=== PATIENT | male | born 1960 | race American Indian/Alaskan Native ===

== ENCOUNTER 2018-05-24 17:17 | Inpatient (IN) | payer OTHER, MEDICAID ==
[2018-05-24] MEDS ORDERED: ANTIVERT PO ONE (19:07)
[2018-05-24] MEDS ORDERED: NORMODYNE IV ONE ×2 (19:07→20:50)
--- NOTE | 2018-05-24 19:12 | Emergency Department Report ---
HPI - General Chief Complaint: Nausea/Vomiting/Diarrhea Time Seen by Provider: 05/24/18 18:52 - HPI HPI: 58-year-old male presents to the emergency department from home via EMS after he passed out, woke up with severe nausea and vomiting, dizziness as if the room is spinning and a headache. He says that he called for his family to come to the house and had to crawl to the door to let them in. 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 The patient receives antibiotics through a PICC line and regularly visits wound care. He received 4 mg of Zofran in route. He has some light sensitivity. No recent travel or sick contacts at home. He is in between primary care physicians. ED Past Medical Hx - Past Medical History Previous Medical History?: Yes Hx Hypertension: Yes Hx Diabetes: Yes Hx HIV: No - Surgical History Past Surgical History?: Yes Additional Surgical History: left foot toes amputated - Social History Smoking Status: Current Some Day Smoker Substance Use Type: None - Medications Home Medications: Home Medications Medication Instructions Recorded Confirmed Last Taken Type Hydrochlorothiazide 0 mg PO QDAY 12/01/15 12/01/15 Unknown History Lisinopril [Zestril TAB] 25 mg PO QDAY 12/01/15 12/01/15 Unknown History ED Review of Systems ROS: Stated complaint: NAUSE/VOMITING/DIZZY Other details as noted in HPI Comment: All other systems reviewed and negative Constitutional: denies: chills, fever Eyes: other (photophobia). denies: eye pain, eye discharge ENT: denies: ear pain, throat pain Respiratory: denies: cough, shortness of breath, wheezing Cardiovascular: syncope. denies: chest pain Gastrointestinal: nausea, vomiting Genitourinary: denies: urgency, dysuria Musculoskeletal: denies: back pain, joint swelling, arthralgia Skin: denies: rash, lesions Neurological: headache, vertigo, other (dizziness) Physical Exam - Physical Exam Vital Signs: Vital Signs 05/24/18 18:55 Temperature 97.7 F Pulse Rate 86 Respiratory 15 Rate Blood Pressure 196/101 O2 Sat by Pulse 99 Oximetry Physical Exam: GENERAL: The patient is well-developed well-nourished. HENT: Normocephalic. Atraumatic. Patient has moist mucous membranes. EYES: Extraocular motions are intact. Pupils equal reactive to light bilaterally. Patient has some sustained horizontal nystagmus. NECK: Supple. Trachea is midline. CHEST/LUNGS: Clear to auscultation. There is no respiratory distress noted. HEART/CARDIOVASCULAR: Regular. There is no tachycardia. There is no murmur. ABDOMEN: Abdomen is soft, nontender. Patient has normal bowel sounds. There is no abdominal distention. SKIN: Skin is warm and dry. NEURO: The patient is awake, alert, and oriented. The patient is cooperative. The patient has no focal neurologic deficits. The patient has normal speech. Cranial nerves II through XII grossly intact. No pronator drift. No facial asymmetry. MUSCULOSKELETAL: There is no tenderness or deformity. There is no limitation range of motion. There is no evidence of acute injury. ED Course Vital Signs 05/24/18 18:55 Temperature 97.7 F Pulse Rate 86 Respiratory 15 Rate Blood Pressure 196/101 O2 Sat by Pulse 99 Oximetry ED Medical Decision Making - Lab Data Result diagrams: 05/24/18 19:30 05/24/18 19:30 - EKG Data -: EKG Interpreted by [facility] EKG shows normal: sinus rhythm, axis, intervals, QRS complexes, ST-T waves Rate: normal - EKG Data When compared to previous EKG there are: previous EKG unavailable Interpretation: normal EKG - Radiology Data Radiology results: report reviewed PROCEDURE: CT head without contrast. TECHNIQUE: Computerized tomography of the head was performed without contrast material. HISTORY: Dizziness, Headache, hypertension COMPARISON: No prior studies are available for comparison. FINDINGS: The ventricles are normal in size. The robertson matter and white matter appear normal. There are no mass lesions. There is no intracranial hemorrhage. The calvarium appears intact. The mastoid air cells and paranasal sinuses are clear as far as visualized. IMPRESSION: Normal study. Transcribed By: [facility] Dictated By: SANTOS YANG MD Electronically Authenticated By: SANTOS YANG MD Signed Date/Time: 05/24/182006 PROCEDURE: CT ANGIO NECK TECHNIQUE: Computerized tomographic angiography of the neck was performed after the IV injection of iodinated nonionic contrast including image processing. The image data was postprocessed using 2-dimensional multiplanar reformatted (MPR) and 3-dimensional (MIP and/or volume rendered) techniques. HISTORY: dizziness, headache COMPARISON: No prior studies are available for comparison. Note: Assessment of carotid artery stenosis is based on measurement of the distal internal carotid artery diameter as the denominator for stenosis calculations and the [place] Symptomatic Carotid Endarterectomy Trial (NASCET) stenosis criteria . CPT 3100F FINDINGS: Sinuses: Normal . Non vascular cervical structures: No significant abnormality . Aortic arch: Normal . Right carotid artery: Normal . Left carotid artery: Normal . Vertebral arteries: The left vertebral artery is dominant. This is a normal variation. IMPRESSION: Normal Examination Transcribed By: [facility] Dictated By: VICTORINO SAEZ MD Electronically Authenticated By: VICTORINO SAEZ MD Signed Date/Time: 05/25/[address] angiography of the head did not show any acute process. - Medical Decision Making Patient presents with some dizziness, nausea and vomiting after passing out earlier. On examination the patient has some sustained horizontal nystagmus. He has some elevated blood pressure. He was given a few doses of blood pressure medication with some improvement. He was given some Antivert. CT of the head did not show any bleed, shift, mass or any other acute process. Upon reevaluation the patient has some improvement but not resolution. The nystatin misses now fatigable. However his dizziness and vertigo like symptoms seem to worsen when he tries to get up and move around or moved too fast. I did a CT angiography of the head and neck that did not show any signs of any dissection, thrombus, occlusion or any other acute process. The patient still does not appear completely stable for discharge home. He does not feel like he can ambulate without being unstable and certain movements worsen his dizziness and vertigo like symptoms. For this reason the patient will be admitted to hospital for further evaluation and has been accepted for admission by the hospitalist, Dr. Starr. - Differential Diagnosis CVA, TIA, benign positional vertigo, labyrinthitis Critical Care Time: No Critical care attestation.: If time is entered above; I have spent that time in minutes in the direct care of this critically ill patient, excluding procedure time. ED Disposition Clinical Impression: Vertigo, Dizziness Hypertension Qualifiers: Hypertension type: essential hypertension Qualified Code(s): I10 - Essential ( primary) hypertension Syncope Qualifiers: Syncope type: unspecified Qualified Code(s): R55 - Syncope and collapse Disposition: OP ADMIT IP TO THIS HOSP Is pt being admited?: Yes Condition: Fair Instructions: Syncope (ED), Hypertension (ED) Referrals: PRIMARY CARE, [Primary Care Provider] - 3-5 Days Time of Disposition: 03:18
[2018-05-24 19:42] LABS: Basophils % (Auto) 0.3 % (0.0-1.8); Eosinophils % (Auto) 0.3 % (0.0-4.3); Hematocrit 38.6 % (35.5-45.6); Hemoglobin 13.6 gm/dl (11.8-15.2); Lymphocytes # (Auto) 1.2 K/mm3 (1.2-5.4); Lymphocytes % (Auto) 13.7 % (13.4-35.0); Mean Corpuscular HGB Conc 35 % (32-34); Mean Corpuscular Hemoglobin 29 pg (28-32); Mean Corpuscular Volume 83 fl (84-94); Monocytes # (Auto) 0.4 K/mm3 (0.0-0.8); Monocytes % (Auto) 4.3 % (0.0-7.3); Platelet Count 226 K/mm3 (140-440); Red Blood Count 4.65 M/mm3 (3.65-5.03); Red Cell Distribution Width 13.7 % (13.2-15.2)
[2018-05-24 20:00] LABS: Albumin 3.8 g/dL (3.9-5); BUN/Creatinine Ratio 16; Blood Urea Nitrogen 13 mg/dL (9-20); Calcium 8.9 mg/dL (8.4-10.2); Hemolysis Index 0
[2018-05-24 20:07] LABS: Alanine Aminotransferase < 5 units/L (7-56)
--- NOTE | 2018-05-24 20:07 | Cat Scan Report ---
FINAL REPORT PROCEDURE: CT head without contrast. TECHNIQUE: Computerized tomography of the head was performed without contrast material. HISTORY: Dizziness, Headache, hypertension COMPARISON: No prior studies are available for comparison. FINDINGS: The ventricles are normal in size. The robertson matter and white matter appear normal. There are no mass lesions. There is no intracranial hemorrhage. The calvarium appears intact. The mastoid air cells and paranasal sinuses are clear as far as visualized. IMPRESSION: Normal study.
[2018-05-24 20:30] LABS: Bacteria,Urine 1+ /HPF (Negative); Bilirubin,Urine NEG (Negative); Blood,Urine NEG (Negative); Color,Urine Straw (Yellow); Mucus,Urine FEW /HPF; Urobilinogen,Urine < 2.0 mg/dL (<2.0)
[2018-05-24 20:39] LABS: Amphetamine Screen,Urine PRESUMPTIVE NEGATIVE; Benzodiazepines Screen,Urine PRESUMPTIVE NEGATIVE; Cannabinoid Screen,Urine PRESUMPTIVE NEGATIVE; Cocaine Screen,Urine PRESUMPTIVE NEGATIVE; Methadone Screen,Urine PRESUMPTIVE NEGATIVE; Opiate Screen,Urine PRESUMPTIVE NEGATIVE
[2018-05-24] MEDS ORDERED: APRESOLINE IV ONE (20:50)
[2018-05-25] MEDS ORDERED: NACL 0.9% 50 ML ONE (00:27)
--- NOTE | 2018-05-25 00:28 | Cat Scan Report ---
FINAL REPORT PROCEDURE: CT ANGIO HEAD TECHNIQUE: Computerized tomographic angiography of the head was performed after the IV injection of iodinated nonionic contrast including image processing. The image data was postprocessed using 2-dimensional multiplanar reformatted (MPR) and 3-dimensional (MIP and/or volume rendered) techniques. HISTORY: dizziness, headache COMPARISON: No prior studies are available for comparison. FINDINGS: Cerebrum: No evidence of hemorrhage, acute ischemia or mass. Cerebellum: No evidence of hemorrhage, acute ischemia or mass. Subarachnoid spaces and ventricles: Normal. Intracranial vessels: Carotid siphon: Normal. Anterior cerebral: Normal. Middle cerebral: Normal. Posterior cerebral:Normal. Vertebral arteries including basilar: Normal. Aneurysms: None. Dural sinuses: Normal. IMPRESSION: Normal Examination.
--- NOTE | 2018-05-25 01:27 | Cat Scan Report ---
FINAL REPORT PROCEDURE: CT ANGIO NECK TECHNIQUE: Computerized tomographic angiography of the neck was performed after the IV injection of iodinated nonionic contrast including image processing. The image data was postprocessed using 2-dimensional multiplanar reformatted (MPR) and 3-dimensional (MIP and/or volume rendered) techniques. HISTORY: dizziness, headache COMPARISON: No prior studies are available for comparison. Note: Assessment of carotid artery stenosis is based on measurement of the distal internal carotid artery diameter as the denominator for stenosis calculations and the [place] Symptomatic Carotid Endarterectomy Trial (NASCET) stenosis criteria . CPT 3100F FINDINGS: Sinuses: Normal . Non vascular cervical structures: No significant abnormality . Aortic arch: Normal . Right carotid artery: Normal . Left carotid artery: Normal . Vertebral arteries: The left vertebral artery is dominant. This is a normal variation. IMPRESSION: Normal Examination
[2018-05-25] MEDS ORDERED: ZOFRAN IV PRN (03:25)
[2018-05-25] MEDS ORDERED: SODIUM CHLORIDE FLUSH SYRINGE 10 ML IV PRN (03:25)
[2018-05-25] MEDS ORDERED: REGLAN PO PRN (03:25)
[2018-05-25] MEDS ORDERED: PHENERGAN PR PRN (03:25)
[2018-05-25] MEDS ORDERED: MILK OF MAGNESIA PO PRN (03:25)
[2018-05-25] MEDS ORDERED: DULCOLAX PR PRN (03:25)
[2018-05-25] MEDS ORDERED: TYLENOL PO PRN (03:25)
--- NOTE | 2018-05-25 03:52 | History and Physical Report ---
History of Present Illness Date of examination: 05/25/18 History of present illness: This is a 58-year-old man with a history of hypertension, diabetes, left foot wound, status post amputation of his toes comes emergency room because he had a syncopal episode, unclear how long. States that when he woke up he felt dizzy, difficulty ambulating, nausea vomiting. The patient has been on home IV cefazolin 3 weeks, he has a PICC line Review of systems Constitutional: no weight loss, chills, fever Ears, eyes, nose, mouth and throat: no nasal congestion, no nasal discharge, no sinus pressure, no vision change, no red eye. Neck: No neck pain or rigidity. Cardiovascular: no chest pain, palpitations Respiratory: no cough, shortness of breath Gastrointestinal: no abdominal pain hematochezia Genitourinary : no frequency , no hematuria Musculoskeletal: no joint swelling or muscle ache Integumentary: no rash, no pruritis Neurological: no parathesias, no focal weakness Endocrine: no cold or heat intolerance, no polyuria or polydipsia Hematologic/Lymphatic: no easy bruising, no easy bleeding, no gland swelling Allergic/Immunologic: no urticaria, no angioedema. PAST MEDICAL HISTORY: hypertension, diabetes, left foot wound PAST SURGICAL HISTORY: amputation of his toes SOCIAL HISTORY: No alcohol, no drugs, tobacco FAMILY HISTORY: Hypertension Medications and Allergies Allergies Allergy/AdvReac Type Severity Reaction Status Date / Time No Known Allergies Allergy Unverified 12/01/15 20:27 Home Medications Medication Instructions Recorded Confirmed Last Taken Type Hydrochlorothiazide 0 mg PO QDAY 12/01/15 12/01/15 Unknown History Lisinopril [Zestril TAB] 25 mg PO QDAY 12/01/15 12/01/15 Unknown History Active Meds: Active Medications Acetaminophen (Tylenol) 650 mg PO Q4H PRN PRN Reason: Pain, Mild (1-3) Aspirin (Aspirin) 325 mg PO QDAY HEAVEN Atorvastatin Calcium (Lipitor) 40 mg PO QHS HEAVEN Bisacodyl (Dulcolax) 10 mg WI QDAY PRN PRN Reason: Constipation Enoxaparin Sodium (Lovenox) 30 mg SUB-Q QDAY HEAVEN Magnesium Hydroxide (Milk Of Magnesia) 30 ml PO Q4H PRN PRN Reason: Constipation Metoclopramide HCl (Reglan) 10 mg PO Q6H PRN PRN Reason: Nausea And Vomiting Ondansetron HCl (Zofran) 4 mg IV Q8H PRN PRN Reason: Nausea And Vomiting Promethazine HCl (Phenergan) 25 mg WI Q6H PRN PRN Reason: Nausea And Vomiting Sodium Chloride (Sodium Chloride Flush Syringe 10 Ml) 10 ml IV PRN PRN PRN Reason: LINE FLUSH Exam - Physical Exam Narrative exam: Gen. appearance: Patient lying in bed, no apparent distress HEENT: Normocephalic, atraumatic, pupils equally round and reactive to light, extraocular movement intact, and no sclericterus,. No JVD or thyromegaly or nodule,neck supple, no carotid bruit ,mucous membranes moist, no exudate or erythema Heart: S1, S2, regular rate and rhythm Lungs: Clear bilaterally, breathing comfortable Abdomen: Positive bowel sounds, non-tender, nondistended, no organomegaly Extremity:no edema cyanosis, clubbing Skin: Left lower extremity wound , no rash, dry, warm Neuro: Oriented 3, cranial nerves II-12 intact, speech is fluent, motor and sensory intact - Constitutional Vitals: Temp Pulse Resp BP Pulse Ox 97.7 F 85 12 131/83 100 05/24/18 18:55 05/25/18 03:15 05/25/18 03:15 05/25/18 03:15 05/25/18 03:15 Results - Labs CBC & Chem 7: 05/24/18 19:30 05/24/18 19:30 Labs: Abnormal lab results 05/24/18 05/24/18 Range/Units 19:30 19:30 MCV 83 L (84-94) fl MCHC 35 H (32-34) % Seg Neutrophils % 81.4 H (40.0-70.0) % Glucose 165 H (75-100) mg/dL ALT < 5 L (7-56) units/L Albumin 3.8 L (3.9-5) g/dL - Imaging and Cardiology EKG: image reviewed CT Scan - head: report reviewed Assessment and Plan Head and neck CTA normal Assessment Vertigo with syncope, rule out CVA Hypertension Diabetes Left lower extremity wound Plan Admit to medicine Do neurochecks, start aspirin, statin obtain MRI of the head, cardiac enzymes, d-dimer neurology consult Check fingersticks, initiate insulin sliding-scale Continue IV antibiotics, start percocet DVT prophylaxis
[2018-05-25 04:17] LABS: Creatine Kinase MB 1.3 ng/mL (0.0-4.0)
[2018-05-25] MEDS: PERCOCET 5/325 PO PRN ×2 (04:57→21:35)
[2018-05-25] MEDS ORDERED: PERCOCET 5/325 ONE (04:57)
[2018-05-25] MEDS: LOVENOX SUB-Q SCH (09:12)
[2018-05-25] MEDS: ASPIRIN PO SCH (09:13)
[2018-05-25] MEDS ORDERED: ANTIVERT PO PRN (10:00)
[2018-05-25] MEDS ORDERED: LOVENOX SUB-Q SCH (10:00)
[2018-05-25 11:07] LABS: Creatine Kinase MB 1.1 ng/mL (0.0-4.0)
--- NOTE | 2018-05-25 14:57 | Progress Note ---
Assessment and Plan Assessment and plan: This is a 58-year-old man with a history of hypertension, diabetes, left foot wound, status post amputation of his toes comes emergency room because he had a syncopal episode, unclear how long. States that when he woke up he felt dizzy, difficulty ambulating, nausea vomiting. The patient has been on home IV cefazolin 3 weeks, he has a PICC line Vertigo with syncope, rule out CVA Hypertension Diabetes Elevated D.dimer Left lower extremity wound Plan Trial of meclizine PT FOR Vestibular training awaiting MRI just finding out it was not done. Discussed with nursing staff and management Do neurochecks, start aspirin, statin Obtain CTA ensure no PE cardiac enzymes, neurology consult Check lower ext doppler Check fingersticks, initiate insulin sliding-scale Continue IV antibiotics, start percocet DVT prophylaxis History Interval history: Patient seen and examined, resting comfortably but still with dizziness especially when moving or with eyes open Hospitalist Physical - Physical exam Narrative exam: Gen. appearance: Patient lying in bed, no apparent distress HEENT: Normocephalic, atraumatic, pupils equally round and reactive to light, extraocular movement intact, and no sclericterus,. No JVD or thyromegaly or nodule,neck supple, no carotid bruit ,mucous membranes moist, no exudate or erythema, Positive Nystagmus Heart: S1, S2, regular rate and rhythm Lungs: Clear bilaterally, breathing comfortable Abdomen: Positive bowel sounds, non-tender, nondistended, no organomegaly Extremity:no edema cyanosis, clubbing Skin: Left lower extremity wound , no rash, dry, warm Neuro: Oriented 3, cranial nerves II-12 intact, speech is fluent, motor and sensory intact - Constitutional Vitals: Temp Pulse Resp BP Pulse Ox 97.5 F L 79 20 169/88 100 05/25/18 13:24 05/25/18 13:24 05/25/18 13:24 05/25/18 13:24 05/25/18 13:24 Results - Labs CBC & Chem 7: 05/24/18 19:30 05/24/18 19:30 Labs: Laboratory Last Values WBC 8.7 K/mm3 (4.5-11.0) 05/24/18 19:30 RBC 4.65 M/mm3 (3.65-5.03) 05/24/18 19:30 Hgb 13.6 gm/dl (11.8-15.2) 05/24/18 19:30 Hct 38.6 % (35.5-45.6) 05/24/18 19: MCV 83 fl (84-94) L 05/24/18 19:30 MCH 29 pg (28-32) 05/24/18 19:30 MCHC 35 % (32-34) H 05/24/18 19:30 RDW 13.7 % (13.2-15.2) 05/24/18 19:30 Plt Count 226 K/mm3 (140-440) 05/24/18 19:30 Lymph % (Auto) 13.7 % (13.4-35.0) 05/24/18: [place] % (Auto) 4.3 % (0.0-7.3) 05/24/18 19: Eos % (Auto) 0.3 % (0.0-4.3) 05/24/18 19: Baso % (Auto) 0.3 % (0.0-1.8) 05/24/18 19:30 Lymph # 1.2 K/mm3 (1.2-5.4) 05/24/18 19:30 [place] # 0.4 K/mm3 (0.0-0.8) 05/24/18 19: Eos # 0.0 K/mm3 (0.0-0.4) 05/24/18 19:30 Baso # 0.0 K/mm3 (0.0-0.1) 05/24/18 19: Seg Neutrophils % 81.4 % (40.0-70.0) H 05/24/18 19:30 Seg Neutrophils # 7.1 K/mm3 (1.8-7.7) 05/24/18 19:30 D-Dimer 456.32 ng/mlDDU (0-234) H 05/25/18 03:44 Sodium 138 mmol/L (137-145) 05/24/18 19:30 Potassium 4.3 mmol/L (3.6-5.0) 05/24/18 19:30 Chloride 98.2 mmol/L (98-107) 05/24/18 19:30 Carbon Dioxide 28 mmol/L (22-30) 05/24/18 19:30 Anion Gap 16 mmol/L 05/24/18 19:30 BUN 13 mg/dL (9-20) 05/24/18 19:30 Creatinine 0.8 mg/dL (0.8-1.5) 05/24/18 19:30 Estimated GFR > 60 ml/min 05/24/18 19:30 BUN/Creatinine Ratio 16 % 05/24/18 19:30 Glucose 165 mg/dL (75-100) H 05/24/18 19:30 POC Glucose 143 (70-105) H 05/25/18 13:33 Calcium 8.9 mg/dL (8.4-10.2) 05/24/18 19:30 Total Bilirubin 0.30 mg/dL (0.1-1.2) 05/24/18 19:30 AST 19 units/L (5-40) 05/24/18 19:30 ALT < 5 units/L (7-56) L 05/24/18 19:30 Alkaline Phosphatase 75 units/L (35-129) 05/24/18 19:30 Total Creatine Kinase 91 units/L (55-170) 05/25/18 10:24 CK-MB (CK-2) 1.1 ng/mL (0.0-4.0) 05/25/18 10:24 CK-MB (CK-2) Rel Index 1.2 (0-4) 05/25/18 10:24 Troponin T < 0.010 ng/mL (0.00-0.029) 05/25/18 10:24 Total Protein 7.5 g/dL (6.3-8.2) 05/24/18 19:30 Albumin 3.8 g/dL (3.9-5) L 05/24/18 19:30 Albumin/Globulin Ratio 1.0 % 05/24/18 19:30 TSH 0.891 mlU/mL (0.270-4.200) 05/24/18 19:30 Urine Color Straw (Yellow) 05/24/18 20:13 Urine Turbidity Clear (Clear) 05/24/18 20:13 Urine pH 7.0 (5.0-7.0) 05/24/18 20:13 Ur Specific [place] 1.012 (1.003-1.030) 05/24/18 20:13 Urine Protein 100 mg/dl mg/dL (Negative) 05/24/18 20:13 Urine Glucose (UA) 50 mg/dL (Negative) 05/24/18 20:13 Urine Ketones Neg mg/dL (Negative) 05/24/18 20:13 Urine Blood Neg (Negative) 05/24/18 20:13 Urine Nitrite Neg (Negative) 05/24/18 20:13 Urine Bilirubin Neg (Negative) 05/24/18 20:13 Urine Urobilinogen < 2.0 mg/dL (<2.0) 05/24/18 20:13 Ur Leukocyte Esterase Neg (Negative) 05/24/18 20:13 Urine WBC (Auto) 5.0 /HPF (0.0-6.0) 05/24/18 20:13 Urine RBC (Auto) 11.0 /HPF (0.0-6.0) 05/24/18 20:13 Urine Bacteria (Auto) 1+ /HPF (Negative) 05/24/18 20:13 Urine Mucus Few /HPF 05/24/18 20:13 Urine Yeast (Budding) 1+ /HPF 05/24/18 20:13 Urine Opiates Screen Presumptive negative 05/24/18 20:13 Urine Methadone Screen Presumptive negative 05/24/18 20:13 Ur Barbiturates Screen Presumptive negative 05/24/18 20:13 Ur Phencyclidine Scrn Presumptive negative 05/24/18 20:13 Ur Amphetamines Screen Presumptive negative 05/24/18 20:13 U Benzodiazepines Scrn Presumptive negative 05/24/18 20:13 Urine Cocaine Screen Presumptive negative 05/24/18 20:13 U Marijuana (THC) Screen Presumptive negative 05/24/18 20:13 Drugs of Abuse Note Disclamer 05/24/18 20:13 Plasma/Serum Alcohol < 0.01 % (0-0.07) 05/24/18 19:30 - Imaging and Cardiology CT scan - chest: pending CT Scan - head: image reviewed (NO ACUTE PATHOLOGY)
--- NOTE | 2018-05-25 17:41 | Cat Scan Report ---
FINAL REPORT PROCEDURE: CT angio chest with contrast. TECHNIQUE: Computerized tomographic angiography of the chest was performed after the IV injection of iodinated nonionic contrast including image processing. The image data was postprocessed using 2-dimensional multiplanar reformatted (MPR) and 3-dimensional (MIP and/or volume rendered) techniques. HISTORY: Shortness of breath, rule out pulmonary embolism. COMPARISON: CT angiogram chest 12/02/2015. FINDINGS: The trachea and central bronchi appear normal. The left lung is clear and well expanded. There is a small peripheral nodule in the lateral portion of the right upper lobe. This is seen on image 32 of series 2. This nodule is noncalcified and measures 5.0 millimeters. A similar nodule was present on the previous study. This is consistent with a benign lesion. The right lung is otherwise clear. There are no pleural effusions. The thoracic aorta has a normal caliber without evidence of dissection. The pulmonary arteries enhance normally. There is no evidence of pulmonary embolism. There is no mediastinal adenopathy. The heart size is normal. The adrenal glands are not enlarged. The thoracic skeleton appears intact. IMPRESSION: Stable small right upper lobe lung nodule. No evidence of pulmonary embolism.
[2018-05-25] MEDS: ANTIVERT PO SCH (20:25)
[2018-05-25] MEDS: PROTONIX PO SCH (21:36)
--- NOTE | 2018-05-26 02:28 | Consultation ---
NEUROLOGICAL CONSULTATION REASON FOR CONSULTATION: Nausea, vomiting. HISTORY OF PRESENT ILLNESS: Obtained from the patient. The patient is a 58-year-old -[place], right-handed male, who went to the Emergency Room because of severe dizziness. He said that he was doing well until he started to be dizzy and everything around him seemed to be floating around and then they were also circling like a vertiginous sensation. He could hardly walk because he was unsteady. In the Emergency Room record, it shows that he presented to the Emergency Department from home via EMS after he passed out and he woke up with severe nausea and vomiting and dizziness as if the room is spinning with headache. Therefore, this is an additional history. crawl to the door to let them in. Therefore, despite of the history was missing from what the patient told me. The patient denied any chest pain, shortness of breath, palpitation. He has no headache, but only this feeling of dizziness and also everything in her vision seems to be fuzzy. He complained of feeling that both his ears were clogged and once it is open, he feels better. He denies any decreased hearing, but he has some ringing at times. This had happened to him about 3 years ago, but this went away. 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 He is receiving antibiotics through a PICC line on his left foot. PAST MEDICAL HISTORY: The patient has hypertension and diabetes. Otherwise, he is healthy. PAST SURGICAL HISTORY: He has left foot toes amputated. SOCIAL HISTORY: He is disabled. He used to be a driver's education instructor delivering parts. He smoked, but mostly cigars. He denied drinking alcoholic beverages. No drugs. HOME MEDICATIONS: None. PHYSICAL EXAMINATION: GENERAL: Well-developed, well-nourished, very pleasant man who is in no acute distress. VITAL SIGNS: Temperature 97.7, pulse rate 86, respirations 16, blood pressure elevated at 196/101, oxygen saturation 99%. HEAD, EYES, EARS, NOSE, MOUTH, AND THROAT: Unremarkable. He has good hearing. No intracranial or intraorbital bruits. NECK: Supple. No carotid bruit. HEART: Regular rate and rhythm. LUNGS: Sounds clear. ABDOMEN: Soft. EXTREMITIES: Appeared externally normal except that I cannot examine the left leg because this was wrapped with a bandage and there was a PICC line. NEUROLOGIC: Revealed the patient is awake, alert. Mental status was normal. Speech sounded normal. Cranial nerve examination unremarkable except for findings in the eyes. The patient has nystagmus. He has conjugate nystagmus when he looks to the right upwards and also downwards, but no nystagmus when he looks to the left. Rest of the cranial nerves unremarkable. Motor examination, 5/5 strength in the upper and lower extremities. Sensory testing was normal. Coordination intact. Reflexes symmetrical on both sides. No pathological reflexes, but the left leg, could not be tested. CLINICAL IMPRESSION: I suspect that this dizziness is peripheral in origin and possible that he has a variant of Meniere's disease. So, his differential diagnosis also is acute labyrinthitis. There is no significant posterior fossa lesion or disorder. He has good coordination. No other brainstem sign, but he has some ear symptoms. The patient probably had syncope because of the severe vertigo. RECOMMENDATION: MRI of the brain with emphasis to the posterior fossa preferably with contrast, also an EEG. Meclizine changed to 25 mg every 8 hours rather than p.r.n. to get him the maintenance dose. Sixty minutes were involved in the history and physical examination and more than 50% in the coordination of care and counseling. JOB# [id number] HOSEA/WILBER
[2018-05-26] MEDS: ANTIVERT PO SCH ×3 (06:39→22:13)
[2018-05-26 08:27] LABS: Chol/HDL Ratio 3.81 %
[2018-05-26] MEDS: ASPIRIN PO SCH (10:48)
[2018-05-26] MEDS: PROTONIX PO SCH ×2 (10:49→22:13)
[2018-05-26] MEDS: LOVENOX SUB-Q SCH (10:49)
[2018-05-26] MEDS ORDERED: APRESOLINE IV PRN (17:43)
[2018-05-26] MEDS ORDERED: NON-FORMULARY (Hydrochlorothiazide 25 MG) PO SCH (17:45)
[2018-05-26] MEDS: ZESTRIL PO SCH (18:22)
[2018-05-26] MEDS: HCTZ PO SCH (18:22)
--- NOTE | 2018-05-26 18:29 | Progress Note ---
Assessment and Plan Assessment and plan: This is a 58-year-old man with a history of hypertension, diabetes, left foot wound, status post amputation of his toes comes emergency room because he had a syncopal episode, unclear how long. States that when he woke up he felt dizzy, difficulty ambulating, nausea vomiting. The patient has been on home IV cefazolin 3 weeks, he has a PICC line Vertigo with syncope, rule out CVA Hypertension urgency Diabetes Elevated D.dimer Left lower extremity wound Plan Trial of meclizine awaiting mri start home bp meds and prn PT FOR Vestibular training awaiting MRI just finding out it was not done. Discussed with nursing staff and management Do neurochecks, start aspirin, statin Obtain CTA ensure no PE cardiac enzymes, neurology consult Noted Check lower ext doppler Check fingersticks, initiate insulin sliding-scale Continue IV antibiotics, start percocet DVT prophylaxis History Interval history: Patient seen and examined, resting comfortably but still with dizziness especially when moving or with eyes open Hospitalist Physical - Physical exam Narrative exam: Gen. appearance: Patient lying in bed, no apparent distress HEENT: Normocephalic, atraumatic, pupils equally round and reactive to light, extraocular movement intact, and no sclericterus,. No JVD or thyromegaly or nodule,neck supple, no carotid bruit ,mucous membranes moist, no exudate or erythema, Positive Nystagmus Heart: S1, S2, regular rate and rhythm Lungs: Clear bilaterally, breathing comfortable Abdomen: Positive bowel sounds, non-tender, nondistended, no organomegaly Extremity:no edema cyanosis, clubbing Skin: Left lower extremity wound , no rash, dry, warm Neuro: Oriented 3, cranial nerves II-12 intact, speech is fluent, motor and sensory intact - Constitutional Vitals: Temp Pulse Resp BP Pulse Ox 97.8 F 91 H 8 L 191/106 100 05/26/18 17:20 05/26/18 17:20 05/26/18 17:20 05/26/18 17:20 05/26/18 17:20 Results - Labs CBC & Chem 7: 05/24/18 19:30 05/24/18 19:30 Labs: Laboratory Last Values WBC 8.7 K/mm3 (4.5-11.0) 05/24/18 19:30 RBC 4.65 M/mm3 (3.65-5.03) 05/24/18 19:30 Hgb 13.6 gm/dl (11.8-15.2) 05/24/18 19:30 Hct 38.6 % (35.5-45.6) 05/24/18 19:30 MCV 83 fl (84-94) L 05/24/18 19:30 MCH 29 pg (28-32) 05/24/18 19:30 MCHC 35 % (32-34) H 05/24/18 19:30 RDW 13.7 % (13.2-15.2) 05/24/18 19:30 Plt Count 226 K/mm3 (140-440) 05/24/18 19:30 Lymph % (Auto) 13.7 % (13.4-35.0) 05/24/18 19:30 [place] % (Auto) 4.3 % (0.0-7.3) 05/24/18 19:30 Eos % (Auto) 0.3 % (0.0-4.3) 05/24/18 19: Baso % (Auto) 0.3 % (0.0-1.8) 05/24/18 19:30 Lymph # 1.2 K/mm3 (1.2-5.4) 05/24/18 19:30 [place] # 0.4 K/mm3 (0.0-0.8) 05/24/18 19:30 Eos # 0.0 K/mm3 (0.0-0.4) 05/24/18 19:30 Baso # 0.0 K/mm3 (0.0-0.1) 05/24/18 19: Seg Neutrophils % 81.4 % (40.0-70.0) H 05/24/18 19:30 Seg Neutrophils # 7.1 K/mm3 (1.8-7.7) 05/24/18 19:30 D-Dimer 456.32 ng/mlDDU (0-234) H 05/25/18 03:44 Sodium 138 mmol/L (137-145) 05/24/18 19:30 Potassium 4.3 mmol/L (3.6-5.0) 05/24/18 19:30 Chloride 98.2 mmol/L (98-107) 05/24/18 19:30 Carbon Dioxide 28 mmol/L (22-30) 05/24/18 19:30 Anion Gap 16 mmol/L 05/24/18 19:30 BUN 13 mg/dL (9-20) 05/24/18 19:30 Creatinine 0.8 mg/dL (0.8-1.5) 05/24/18 19:30 Estimated GFR > 60 ml/min 05/24/18 19:30 BUN/Creatinine Ratio 16 % 05/24/18 19:30 Glucose 165 mg/dL (75-100) H 05/24/18 19:30 POC Glucose 141 (70-105) H 05/26/18 12:24 Calcium 8.9 mg/dL (8.4-10.2) 05/24/18 19:30 Total Bilirubin 0.30 mg/dL (0.1-1.2) 05/24/18 19:30 AST 19 units/L (5-40) 05/24/18 19:30 ALT < 5 units/L (7-56) L 05/24/18 19:30 Alkaline Phosphatase 75 units/L (35-129) 05/24/18 19:30 Total Creatine Kinase 91 units/L (55-170) 05/25/18 10:24 CK-MB (CK-2) 1.1 ng/mL (0.0-4.0) 05/25/18 10:24 CK-MB (CK-2) Rel Index 1.2 (0-4) 05/25/18 10:24 Troponin T < 0.010 ng/mL (0.00-0.029) 05/25/18 10:24 Total Protein 7.5 g/dL (6.3-8.2) 05/24/18 19:30 Albumin 3.8 g/dL (3.9-5) L 05/24/18 19:30 Albumin/Globulin Ratio 1.0 % 05/24/18 19:30 Triglycerides 84 mg/dL (2-149) 05/26/18 07:27 Cholesterol 168 mg/dL (50-199) 05/26/18 07:27 LDL Cholesterol Direct 121 mg/dL (50-130) 05/26/18 07:27 HDL Cholesterol 44 mg/dL (40-59) 05/26/18 07:27 Cholesterol/HDL Ratio 3.81 % 05/26/18 07:27 TSH 0.891 mlU/mL (0.270-4.200) 05/24/18 19:30 Urine Color Straw (Yellow) 05/24/18 20:13 Urine Turbidity Clear (Clear) 05/24/18 20:13 Urine pH 7.0 (5.0-7.0) 05/24/18 20:13 Ur Specific [place] 1.012 (1.003-1.030) 05/24/18 20:13 Urine Protein 100 mg/dl mg/dL (Negative) 05/24/18 20:13 Urine Glucose (UA) 50 mg/dL (Negative) 05/24/18 20:13 Urine Ketones Neg mg/dL (Negative) 05/24/18 20:13 Urine Blood Neg (Negative) 05/24/18 20:13 Urine Nitrite Neg (Negative) 05/24/18 20:13 Urine Bilirubin Neg (Negative) 05/24/18 20:13 Urine Urobilinogen < 2.0 mg/dL (<2.0) 05/24/18 20:13 Ur Leukocyte Esterase Neg (Negative) 05/24/18 20:13 Urine WBC (Auto) 5.0 /HPF (0.0-6.0) 05/24/18 20:13 Urine RBC (Auto) 11.0 /HPF (0.0-6.0) 05/24/18 20:13 Urine Bacteria (Auto) 1+ /HPF (Negative) 05/24/18 20:13 Urine Mucus Few /HPF 05/24/18 20:13 Urine Yeast (Budding) 1+ /HPF 05/24/18 20:13 Urine Opiates Screen Presumptive negative 05/24/18 20:13 Urine Methadone Screen Presumptive negative 05/24/18 20:13 Ur Barbiturates Screen Presumptive negative 05/24/18 20:13 Ur Phencyclidine Scrn Presumptive negative 05/24/18 20:13 Ur Amphetamines Screen Presumptive negative 05/24/18 20:13 U Benzodiazepines Scrn Presumptive negative 05/24/18 20:13 Urine Cocaine Screen Presumptive negative 05/24/18 20:13 U Marijuana (THC) Screen Presumptive negative 05/24/18 20:13 Drugs of Abuse Note Disclamer 05/24/18 20:13 Plasma/Serum Alcohol < 0.01 % (0-0.07) 05/24/18 19:30 - Imaging and Cardiology MRI - head: pending
--- NOTE | 2018-05-26 18:41 | Magnetic Resonance Report ---
FINAL REPORT EXAM: MR BRAIN WO CON HISTORY: stroke TECHNIQUE: T1 and T2 weighted sagittal, axial, coronal and diffusion-weighted images of the brain were obtained. Comparison: Head CT dated May 24, 2018 FINDINGS: There is the appearance of marked thinning of the posterior body of the corpus callosum consistent with a focus of encephalomalacia. The lack of increased T2 signal to suggest gliosis in this region suggests that this is a distant, possibly or , event. There is the appearance of slight hypertrophy of the more posterior body and splenium of the corpus callosum. There is no abnormal signal in the posterior body and splenium of the corpus callosum to suggest the presence of an underlying mass. Brain are texture is otherwise normal. There are no areas of abnormal intracranial signal and no evidence of intracranial mass. There is no evidence of acute ischemia nor intracranial hemorrhage. The ventricles are normal size. Incidental note is made of a small, approximately 1.7 centimeter, possible arachnoid cyst in the posterior fossa on the left. Expected flow void is demonstrated within the major intracranial vessels. The extracranial structures and craniocervical junction are unremarkable in appearance. IMPRESSION: 1. Appearance of a focus of encephalomalacia in the posterior body of the corpus callosum which may represent sequela of a distant infarct (possibly or ) in this region. There appears to be associated hypertrophy of the more posterior body and splenium of the corpus callosum. Comparison with previous MRI would be helpful. 2. Small possible arachnoid cyst in the posterior fossa on the left. 3. Otherwise normal study.
[2018-05-26] MEDS: PERCOCET 5/325 PO PRN (22:18)
--- NOTE | 2018-05-26 23:21 | Physician Progress Note ---
NEUROLOGY PROGRESS NOTE SUBJECTIVE: The patient is being followed because of constant dizziness, nausea, and vomiting. My evaluation at that time revealed that he most likely has a peripheral cause of this dizziness. I suspect he may have acute labyrinthitis. I was looking also at the possibility of a posterior fossa insufficiency or vertebrobasilar insufficiency. The patient is going to have an MRI of the brain. OBJECTIVE: GENERAL: The patient is a little better at this time, but he is still dizzy. VITAL SIGNS: Stable. NEUROLOGIC: He still has the same nystagmus, but neurological examination is otherwise unremarkable. ASSESSMENT: Possible acute labyrinthine disease, rule out Meniere's disease, rule out vertebrobasilar insufficiency. PLAN: Await the result of the MRI of the brain and also the EEG. Continue the meclizine 25 mg t.i.d. I discussed this with the . I will not be following the patient since my locum time or is over. Next neurologist will be continuing with the care. Hospitalist will follow medically also. JOB# [id number] HO[facility]/WILBER
[2018-05-27] MEDS: ANTIVERT PO SCH ×3 (06:31→21:41)
[2018-05-27] MEDS: PROTONIX PO SCH ×2 (10:27→21:41)
[2018-05-27] MEDS: HCTZ PO SCH (10:27)
[2018-05-27] MEDS: ASPIRIN PO SCH (10:27)
[2018-05-27] MEDS: ZESTRIL PO SCH (10:27)
[2018-05-27] MEDS: LOVENOX SUB-Q SCH (10:30)
--- NOTE | 2018-05-27 14:51 | Progress Note ---
Assessment and Plan Assessment and plan: This is a 58-year-old man with a history of hypertension, diabetes, left foot wound, status post amputation of his toes comes emergency room because he had a syncopal episode, unclear how long. States that when he woke up he felt dizzy, difficulty ambulating, nausea vomiting. The patient has been on home IV cefazolin 3 weeks, he has a PICC line Vertigo with syncope, rule out CVA Hypertension urgency Diabetes Elevated D.dimer Left lower extremity wound Plan Trial of meclizine MRI with no acute pathology Ear drops start home bp meds and prn PT FOR Vestibular training awaiting MRI just finding out it was not done. Discussed with nursing staff and management Do neurochecks, start aspirin, statin Obtain CTA ensure no PE cardiac enzymes, neurology consult Noted Check lower ext doppler Check fingersticks, initiate insulin sliding-scale Continue IV antibiotics, start percocet DVT prophylaxis History Interval history: Patient seen and examined, resting comfortably frustrated about persisted dizziness especially when moving or with eyes open. complains of right ear pain Hospitalist Physical - Physical exam Narrative exam: Gen. appearance: Patient lying in bed, no apparent distress HEENT: Normocephalic, atraumatic, pupils equally round and reactive to light, extraocular movement intact, and no sclericterus,. No JVD or thyromegaly or nodule,neck supple, no carotid bruit ,mucous membranes moist, no exudate or erythema, Positive Nystagmus Heart: S1, S2, regular rate and rhythm Lungs: Clear bilaterally, breathing comfortable Abdomen: Positive bowel sounds, non-tender, nondistended, no organomegaly Extremity:no edema cyanosis, clubbing Skin: Left lower extremity wound , no rash, dry, warm Neuro: Oriented 3, cranial nerves II-12 intact, speech is fluent, motor and sensory intact - Constitutional Vitals: Temp Pulse Resp BP Pulse Ox 97.4 F L 82 18 153/88 98 05/27/18 08:50 05/27/18 10:27 05/27/18 08:50 05/27/18 10:27 05/27/18 08:50 Results - Labs CBC & Chem 7: 05/24/18 19:30 05/24/18 19:30 Labs: Laboratory Last Values WBC 8.7 K/mm3 (4.5-11.0) 05/24/18 19:30 RBC 4.65 M/mm3 (3.65-5.03) 05/24/18 19:30 Hgb 13.6 gm/dl (11.8-15.2) 05/24/18 19: Hct 38.6 % (35.5-45.6) 05/24/18 19:30 MCV 83 fl (84-94) L 05/24/18: MCH 29 pg (28-32) 05/24/18 19: MCHC 35 % (32-34) H 05/24/18 19:30 RDW 13.7 % (13.2-15.2) 05/24/18 19: Plt Count 226 K/mm3 (140-440) 05/24/18: Lymph % (Auto) 13.7 % (13.4-35.0) 05/24/18: [place] % (Auto) 4.3 % (0.0-7.3) 05/24/18: Eos % (Auto) 0.3 % (0.0-4.3) 05/24/18 19: Baso % (Auto) 0.3 % (0.0-1.8) 05/24/18 19: Lymph # 1.2 K/mm3 (1.2-5.4) 05/24/18: [place] # 0.4 K/mm3 (0.0-0.8) 05/24/18: Eos # 0.0 K/mm3 (0.0-0.4) 05/24/18: Baso # 0.0 K/mm3 (0.0-0.1) 05/24/18 19:30 Seg Neutrophils % 81.4 % (40.0-70.0) H 05/24/18 19: Seg Neutrophils # 7.1 K/mm3 (1.8-7.7) 05/24/18: D-Dimer 456.32 ng/mlDDU (0-234) H 05/25/18 03:44 Sodium 138 mmol/L (137-145) 05/24/18 19:30 Potassium 4.3 mmol/L (3.6-5.0) 05/24/18 19:30 Chloride 98.2 mmol/L (98-107) 05/24/18 19:30 Carbon Dioxide 28 mmol/L (22-30) 05/24/18 19:30 Anion Gap 16 mmol/L 05/24/18 19:30 BUN 13 mg/dL (9-20) 05/24/18 19:30 Creatinine 0.8 mg/dL (0.8-1.5) 05/24/18 19:30 Estimated GFR > 60 ml/min 05/24/18 19:30 BUN/Creatinine Ratio 16 % 05/24/18 19:30 Glucose 165 mg/dL (75-100) H 05/24/18 19:30 POC Glucose 166 (70-105) H 05/27/18 12:06 Calcium 8.9 mg/dL (8.4-10.2) 05/24/18 19:30 Total Bilirubin 0.30 mg/dL (0.1-1.2) 05/24/18 19:30 AST 19 units/L (5-40) 05/24/18 19:30 ALT < 5 units/L (7-56) L 05/24/18 19:30 Alkaline Phosphatase 75 units/L (35-129) 05/24/18 19:30 Total Creatine Kinase 91 units/L (55-170) 05/25/18 10:24 CK-MB (CK-2) 1.1 ng/mL (0.0-4.0) 05/25/18 10:24 CK-MB (CK-2) Rel Index 1.2 (0-4) 05/25/18 10:24 Troponin T < 0.010 ng/mL (0.00-0.029) 05/25/18 10:24 Total Protein 7.5 g/dL (6.3-8.2) 05/24/18 19:30 Albumin 3.8 g/dL (3.9-5) L 05/24/18 19:30 Albumin/Globulin Ratio 1.0 % 05/24/18 19:30 Triglycerides 84 mg/dL (2-149) 05/26/18 07:27 Cholesterol 168 mg/dL (50-199) 05/26/18 07:27 LDL Cholesterol Direct 121 mg/dL (50-130) 05/26/18 07:27 HDL Cholesterol 44 mg/dL (40-59) 05/26/18 07:27 Cholesterol/HDL Ratio 3.81 % 05/26/18 07:27 TSH 0.891 mlU/mL (0.270-4.200) 05/24/18 19:30 Urine Color Straw (Yellow) 05/24/18 20:13 Urine Turbidity Clear (Clear) 05/24/18 20:13 Urine pH 7.0 (5.0-7.0) 05/24/18 20:13 Ur Specific [place] 1.012 (1.003-1.030) 05/24/18 20:13 Urine Protein 100 mg/dl mg/dL (Negative) 05/24/18 20:13 Urine Glucose (UA) 50 mg/dL (Negative) 05/24/18 20:13 Urine Ketones Neg mg/dL (Negative) 05/24/18 20:13 Urine Blood Neg (Negative) 05/24/18 20:13 Urine Nitrite Neg (Negative) 05/24/18 20:13 Urine Bilirubin Neg (Negative) 05/24/18 20:13 Urine Urobilinogen < 2.0 mg/dL (<2.0) 05/24/18 20:13 Ur Leukocyte Esterase Neg (Negative) 05/24/18 20:13 Urine WBC (Auto) 5.0 /HPF (0.0-6.0) 05/24/18 20:13 Urine RBC (Auto) 11.0 /HPF (0.0-6.0) 05/24/18 20:13 Urine Bacteria (Auto) 1+ /HPF (Negative) 05/24/18 20:13 Urine Mucus Few /HPF 05/24/18 20:13 Urine Yeast (Budding) 1+ /HPF 05/24/18 20:13 Urine Opiates Screen Presumptive negative 05/24/18 20:13 Urine Methadone Screen Presumptive negative 05/24/18 20:13 Ur Barbiturates Screen Presumptive negative 05/24/18 20:13 Ur Phencyclidine Scrn Presumptive negative 05/24/18 20:13 Ur Amphetamines Screen Presumptive negative 05/24/18 20:13 U Benzodiazepines Scrn Presumptive negative 05/24/18 20:13 Urine Cocaine Screen Presumptive negative 05/24/18 20:13 U Marijuana (THC) Screen Presumptive negative 05/24/18 20:13 Drugs of Abuse Note Disclamer 05/24/18 20:13 Plasma/Serum Alcohol < 0.01 % (0-0.07) 05/24/18 19:30
[2018-05-27] MEDS: POLYSPORIN OU SCH ×3 (16:51→23:50)
[2018-05-27] MEDS: NACL 0.9% 1000 ML 1,000 ML IV SCH (16:51)
[2018-05-27] MEDS: HumaLOG SUB-Q SCH ×2 (17:52→22:00)
[2018-05-27] MEDS: AMBIEN PO PRN (23:54)
[2018-05-27] MEDS: PERCOCET 5/325 PO PRN (23:54)
[2018-05-28] MEDS: POLYSPORIN OU SCH (04:15)
[2018-05-28] MEDS: ANTIVERT PO SCH ×3 (05:46→22:01)
--- NOTE | 2018-05-28 10:06 | Progress Note ---
Assessment and Plan Assessment and plan: This is a 58-year-old man with a history of hypertension, diabetes, left foot wound, status post amputation of his toes comes emergency room because he had a syncopal episode, unclear how long. States that when he woke up he felt dizzy, difficulty ambulating, nausea vomiting. The patient has been on home IV cefazolin 3 weeks, he has a PICC line Vertigo with syncope, rule out CVA Hypertension urgency Diabetes Elevated D.dimer Left lower extremity wound SECONDARY TO TOE AMPUTATION Plan Trial of meclizine MRI with no acute pathology awaiting vestibular PT eval Ear drops Continue home bp meds and prn Do neurochecks, Continue aspirin, statin Obtain CTA ensure no PE cardiac enzymes, neurology consult Noted Check lower ext doppler Check fingersticks, initiate insulin sliding-scale Continue IV antibiotics, PRN percocet DVT prophylaxis Plan discussed with patient Anticipate discharge in 24 hrs. History Interval history: Patient seen and examined, resting comfortably, reports some improvement, persisted dizziness especially when moving or with eyes open. complains of right ear pain Hospitalist Physical - Physical exam Narrative exam: Gen. appearance: Patient lying in bed, no apparent distress HEENT: Normocephalic, atraumatic, pupils equally round and reactive to light, extraocular movement intact, and no sclericterus,. No JVD or thyromegaly or nodule,neck supple, no carotid bruit ,mucous membranes moist, no exudate or erythema, Positive Nystagmus Heart: S1, S2, regular rate and rhythm Lungs: Clear bilaterally, breathing comfortable Abdomen: Positive bowel sounds, non-tender, nondistended, no organomegaly Extremity:no edema cyanosis, clubbing Skin: Left lower extremity wound , no rash, dry, warm Neuro: Oriented 3, cranial nerves II-12 intact, speech is fluent, motor and sensory intact - Constitutional Vitals: Temp Pulse Resp BP Pulse Ox 97.7 F 73 18 140/73 98 05/28/18 08:49 05/28/18 08:49 05/28/18 08:49 05/28/18 08:49 05/28/18 08:49 Results - Labs CBC & Chem 7: 05/24/18 19:30 05/24/18 19:30 Labs: Laboratory Last Values WBC 8.7 K/mm3 (4.5-11.0) 05/24/18 19:30 RBC 4.65 M/mm3 (3.65-5.03) 05/24/18 19:30 Hgb 13.6 gm/dl (11.8-15.2) 05/24/18: Hct 38.6 % (35.5-45.6) 05/24/18: MCV 83 fl (84-94) L 05/24/18: MCH 29 pg (28-32) 05/24/18: MCHC 35 % (32-34) H 05/24/18 19: RDW 13.7 % (13.2-15.2) 05/24/18: Plt Count 226 K/mm3 (140-440) 05/24/18: Lymph % (Auto) 13.7 % (13.4-35.0) 05/24/18: [place] % (Auto) 4.3 % (0.0-7.3) 05/24/18: Eos % (Auto) 0.3 % (0.0-4.3) 05/24/18: Baso % (Auto) 0.3 % (0.0-1.8) 05/24/18: Lymph # 1.2 K/mm3 (1.2-5.4) 05/24/18: [place] # 0.4 K/mm3 (0.0-0.8) 05/24/18: Eos # 0.0 K/mm3 (0.0-0.4) 05/24/18: Baso # 0.0 K/mm3 (0.0-0.1) 05/24/18 19: Seg Neutrophils % 81.4 % (40.0-70.0) H 05/24/18 19: Seg Neutrophils # 7.1 K/mm3 (1.8-7.7) 05/24/18 D-Dimer 456.32 ng/mlDDU (0-234) H 05/25/18 03:44 Sodium 138 mmol/L (137-145) 05/24/18 19:30 Potassium 4.3 mmol/L (3.6-5.0) 05/24/18 19: Chloride 98.2 mmol/L (98-107) 05/24/18 19:30 Carbon Dioxide 28 mmol/L (22-30) 05/24/18 19:30 Anion Gap 16 mmol/L 05/24/18 19:30 BUN 13 mg/dL (9-20) 05/24/18 19:30 Creatinine 0.8 mg/dL (0.8-1.5) 05/24/18 19:30 Estimated GFR > 60 ml/min 05/24/18 19:30 BUN/Creatinine Ratio 16 % 05/24/18 19:30 Glucose 165 mg/dL (75-100) H 05/24/18 19:30 POC Glucose 126 (70-105) H 05/27/18 23:12 Calcium 8.9 mg/dL (8.4-10.2) 05/24/18 19:30 Total Bilirubin 0.30 mg/dL (0.1-1.2) 05/24/18 19:30 AST 19 units/L (5-40) 05/24/18 19:30 ALT < 5 units/L (7-56) L 05/24/18 19:30 Alkaline Phosphatase 75 units/L (35-129) 05/24/18 19:30 Total Creatine Kinase 91 units/L (55-170) 05/25/18 10:24 CK-MB (CK-2) 1.1 ng/mL (0.0-4.0) 05/25/18 10:24 CK-MB (CK-2) Rel Index 1.2 (0-4) 05/25/18 10:24 Troponin T < 0.010 ng/mL (0.00-0.029) 05/25/18 10:24 Total Protein 7.5 g/dL (6.3-8.2) 05/24/18 19:30 Albumin 3.8 g/dL (3.9-5) L 05/24/18 19:30 Albumin/Globulin Ratio 1.0 % 05/24/18 19:30 Triglycerides 84 mg/dL (2-149) 05/26/18 07:27 Cholesterol 168 mg/dL (50-199) 05/26/18 07:27 LDL Cholesterol Direct 121 mg/dL (50-130) 05/26/18 07:27 HDL Cholesterol 44 mg/dL (40-59) 05/26/18 07:27 Cholesterol/HDL Ratio 3.81 % 05/26/18 07:27 TSH 0.891 mlU/mL (0.270-4.200) 05/24/18 19:30 Urine Color Straw (Yellow) 05/24/18 20:13 Urine Turbidity Clear (Clear) 05/24/18 20:13 Urine pH 7.0 (5.0-7.0) 05/24/18 20:13 Ur Specific [place] 1.012 (1.003-1.030) 05/24/18 20:13 Urine Protein 100 mg/dl mg/dL (Negative) 05/24/18 20:13 Urine Glucose (UA) 50 mg/dL (Negative) 05/24/18 20:13 Urine Ketones Neg mg/dL (Negative) 05/24/18 20:13 Urine Blood Neg (Negative) 05/24/18 20:13 Urine Nitrite Neg (Negative) 05/24/18 20:13 Urine Bilirubin Neg (Negative) 05/24/18 20:13 Urine Urobilinogen < 2.0 mg/dL (<2.0) 05/24/18 20:13 Ur Leukocyte Esterase Neg (Negative) 05/24/18 20:13 Urine WBC (Auto) 5.0 /HPF (0.0-6.0) 05/24/18 20:13 Urine RBC (Auto) 11.0 /HPF (0.0-6.0) 05/24/18 20:13 Urine Bacteria (Auto) 1+ /HPF (Negative) 05/24/18 20:13 Urine Mucus Few /HPF 05/24/18 20:13 Urine Yeast (Budding) 1+ /HPF 05/24/18 20:13 Urine Opiates Screen Presumptive negative 05/24/18 20:13 Urine Methadone Screen Presumptive negative 05/24/18 20:13 Ur Barbiturates Screen Presumptive negative 05/24/18 20:13 Ur Phencyclidine Scrn Presumptive negative 05/24/18 20:13 Ur Amphetamines Screen Presumptive negative 05/24/18 20:13 U Benzodiazepines Scrn Presumptive negative 05/24/18 20:13 Urine Cocaine Screen Presumptive negative 05/24/18 20:13 U Marijuana (THC) Screen Presumptive negative 05/24/18 20:13 Drugs of Abuse Note Disclamer 05/24/18 20:13 Plasma/Serum Alcohol < 0.01 % (0-0.07) 05/24/18 19:30
[2018-05-28] MEDS: ZESTRIL PO SCH (10:28)
[2018-05-28] MEDS: ASPIRIN PO SCH (10:29)
[2018-05-28] MEDS: LOVENOX SUB-Q SCH (10:29)
[2018-05-28] MEDS: PROTONIX PO SCH ×2 (10:29→22:01)
[2018-05-28] MEDS: HCTZ PO SCH (10:29)
[2018-05-28] MEDS: HumaLOG SUB-Q SCH ×4 (10:30→22:00)
[2018-05-28] MEDS: NACL 0.9% 1000 ML 1,000 ML IV SCH (16:32)
[2018-05-28] MEDS: PERCOCET 5/325 PO PRN (22:00)
[2018-05-28] MEDS: AMBIEN PO PRN (22:00)
[2018-05-29] MEDS: ANTIVERT PO SCH ×3 (05:37→21:31)
[2018-05-29] MEDS: ZESTRIL PO SCH (09:45)
[2018-05-29] MEDS: LOVENOX SUB-Q SCH (09:46)
[2018-05-29] MEDS: PROTONIX PO SCH ×2 (09:46→21:31)
[2018-05-29] MEDS: ASPIRIN PO SCH (09:46)
[2018-05-29] MEDS: HCTZ PO SCH (09:47)
[2018-05-29] MEDS: HumaLOG SUB-Q SCH ×4 (09:47→21:31)
--- NOTE | 2018-05-29 10:02 | XRay Report ---
AP CHEST: HISTORY: PICC line placement A left arm PICC has been inserted which terminates in the mid SVC. AP view of the chest demonstrates a normal mediastinal and cardiac contour with clear lungs and normal bony and soft tissue structures. IMPRESSION: Unremarkable AP chest.
--- NOTE | 2018-05-29 11:18 | Discharge Summary ---
Providers - Providers Date of Admission: 05/25/18 03:25 Attending physician: JESSICA ALDRICH MD 05/25/18 03:25 Occupational Therapy Evaluate and Treat [CONS] Routine Comment: Reason For Exam: Neuro deficits Physical Therapy Evaluation and Treat [CONS] Routine Comment: Reason For Exam: vestibular traning 05/25/18 03:48 Consult to Physician [CONS] Routine Comment: Consulting Provider: LIZETT AUSTIN Physician Instructions: Reason For Exam: vertigo 05/25/18 18:06 Consult to PICC Line RN [CONS] Routine Reason For Exam: pt admitted with Picc line. 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 States that when he woke up he felt dizzy, difficulty ambulating, nausea vomiting. The patient has been on home IV cefazolin 3 weeks, he has a PICC line Vertigo with syncope, rule out CVA Hypertension urgency Diabetes Elevated D.dimer Left lower extremity wound SECONDARY TO TOE AMPUTATION Plan Trial of meclizine MRI with no acute pathology awaiting vestibular PT eval Ear drops Continue home bp meds and prn Do neurochecks, Continue aspirin, statin Obtain CTA ensure no PE cardiac enzymes, neurology consult Noted Check lower ext doppler Check fingersticks, initiate insulin sliding-scale Continue IV antibiotics, PRN percocet DVT prophylaxis Plan discussed with patient Anticipate discharge in 24 hrs. Disposition: [id number]/TX-06 HOME UNDER HOME [facility] Time spent for discharge: 35 mins Core Measure Documentation - Palliative Care Palliative Care/ Comfort Measures: Not Applicable - Core Measures Any of the following diagnoses?: none - VTE Discharge Requirements Deep Vein Thrombosis/Pulmonary Embolism Present on Admission: No Exam - Physical Exam Narrative exam: Gen. appearance: Patient lying in bed, no apparent distress HEENT: Normocephalic, atraumatic, pupils equally round and reactive to light, extraocular movement intact, and no sclericterus,. No JVD or thyromegaly or nodule,neck supple, no carotid bruit ,mucous membranes moist, no exudate or erythema, Positive Nystagmus Heart: S1, S2, regular rate and rhythm Lungs: Clear bilaterally, breathing comfortable Abdomen: Positive bowel sounds, non-tender, nondistended, no organomegaly Extremity:no edema cyanosis, clubbing Skin: Left lower extremity wound , no rash, dry, warm Neuro: Oriented 3, cranial nerves II-12 intact, speech is fluent, motor and sensory intact - Constitutional Vitals: Temp Pulse Resp BP Pulse Ox 98.0 F 81 18 142/83 98 05/29/18 08:10 05/29/18 08:10 05/29/18 08:10 05/29/18 08:10 05/29/18 08:10 Plan Activity: advance as tolerated, fall precautions Diet: regular Additional Instructions: cont follow up with [facility] for antibiotics Follow up with: PRIMARY CARE, [Primary Care Provider] - 3-5 Days Prescriptions: AtorvaSTATin [Lipitor] 40 mg PO QHS #30 tablet hydroCHLOROthiazide [HCTZ] 25 mg PO QDAY #30 tablet Meclizine [Antivert] 25 mg PO Q8HR #90 tablet Pantoprazole [Protonix TAB] 40 mg PO DAILY #30 tablet
[2018-05-29] MEDS: NACL 0.9% 1000 ML 1,000 ML IV SCH (13:16)
[2018-05-29] MEDS: ceFAZolin 2 GM in NACL 0.9% 100 ML IV SCH ×2 (13:17→14:00)
[2018-05-29 20:13] VITALS: BP 138/81
[2018-05-29] MEDS ORDERED: ceFAZolin 2 GM in NACL 0.9% 100 ML IV SCH (21:00)
--- NOTE | 2018-05-30 13:12 | Vascular Lab Report ---
LOWER EXTREMITY VENOUS DUPLEX: REASON FOR EXAM: Deep venous thrombosis. COMMENTS ON THE RIGHT: All veins visualized are freely compressible without evidence of internal echogenicity. Flow is spontaneous and phasic throughout. COMMENTS ON THE LEFT: All veins visualized are freely compressible without evidence of internal echogenicity. Flow is spontaneous and phasic throughout. IMPRESSION: No evidence of acute or chronic deep venous thrombosis in either lower extremity.
== END 2018-05-29 21:41 | disposition home health service (06) | DRG 66 ==
LOC: ED 17:17 → 4A 05-25 03:25
PROVIDERS: ADMIT Internal Medicine; ATTEND Internal Medicine
DX: I63.9 Cerebral infarction, unspecified (principal); R42 Dizziness and giddiness; I10 Essential (primary) hypertension; Z89.422 Acquired absence of other left toe(s); E11.9 Type 2 diabetes mellitus without complications; F17.200 Nicotine dependence, unspecified, uncomplicated; Z79.899 Other long term (current) drug therapy; Z82.49 Family history of ischemic heart disease and other diseases of the circulatory system; I16.0 Hypertensive urgency
CPT/HCPCS: 36415; 70450; 70496; 70498; 70551; 71045; 71275; 80053; 80061; 80307; 80320; 81001; 82550; 82553; 82962; 84443; 84484; 85025; 85379; 93005; 93010; 93970; 95819; 96374; A9270-GY; G0480; J0360; J0690; J1650; J1815; J2405; J7030; Q9967

== ENCOUNTER 2020-11-10 15:14 | Emergency (ER) | payer MEDICAID, OTHER ==
[2020-11-10] MEDS ORDERED: SODIUM CHLORIDE 0.9% 1000 ML 1,000 ML IV ONE ×2 (15:49→19:45)
[2020-11-10] MEDS ORDERED: ONDANSETRON 4 MG/2 ML INJ IV ONE (15:49)
--- NOTE | 2020-11-10 15:51 | Emergency Department Report ---
ED General Adult HPI - General Chief complaint: Abdominal Pain Stated complaint: ABD PAIN Time Seen by Provider: 11/10/20 15:48 Source: patient Mode of arrival: Wheelchair Limitations: No Limitations - History of Present Illness Initial comments: Patient is a 60-year-old male who presents emergency department for evaluation of mild crampy intermittent epigastric pain associated with nausea and vomiting without diarrhea x1 week. Patient denies cough or shortness of breath, denies chest pain, denies fever. - Related Data Home Medications Medication Instructions Recorded Confirmed Last Taken Hydrochlorothiazide 0 mg PO QDAY 12/01/15 05/25/18 05/22/18 lisinopriL [Zestril TAB] 25 mg PO QDAY 12/01/15 05/25/18 05/22/18 09:00 Previous Rx's Medication Instructions Recorded Last Taken Type AtorvaSTATin [Lipitor] 40 mg PO QHS #30 tablet 05/29/18 Unknown Rx Meclizine [Antivert] 25 mg PO Q8HR #90 tablet 05/29/18 Unknown Rx Pantoprazole [Protonix TAB] 40 mg PO DAILY #30 tablet 05/29/18 Unknown Rx hydroCHLOROthiazide [HCTZ] 25 mg PO QDAY #30 tablet 05/29/18 Unknown Rx Allergies Allergy/AdvReac Type Severity Reaction Status Date / Time No Known Allergies Allergy Unverified 12/01/15 20:27 ED Review of Systems ROS: Stated complaint: ABD PAIN Other details as noted in HPI Comment: All other systems reviewed and negative ED Past Medical Hx - Past Medical History Previous Medical History?: Yes Hx Hypertension: Yes Hx Congestive Heart Failure: No Hx Diabetes: Yes Hx Asthma: No Hx COPD: No Hx HIV: No - Surgical History Past Surgical History?: Yes Additional Surgical History: left foot toes amputated - Social History Smoking Status: Never Smoker Substance Use Type: None - Medications Home Medications: Home Medications Medication Instructions Recorded Confirmed Last Taken Type Hydrochlorothiazide 0 mg PO QDAY 12/01/15 05/25/18 05/22/18 History lisinopriL [Zestril TAB] 25 mg PO QDAY 12/01/15 05/25/18 05/22/18 09:00 History AtorvaSTATin [Lipitor] 40 mg PO QHS #30 tablet 05/29/18 Unknown Rx Meclizine [Antivert] 25 mg PO Q8HR #90 tablet 05/29/18 Unknown Rx Pantoprazole [Protonix TAB] 40 mg PO DAILY #30 tablet 05/29/18 Unknown Rx hydroCHLOROthiazide [HCTZ] 25 mg PO QDAY #30 tablet 05/29/18 Unknown Rx ED Physical Exam - General Limitations: No Limitations General appearance: alert, in no apparent distress - Head Head exam: Present: atraumatic, normocephalic - Eye Eye exam: Present: normal appearance - ENT ENT exam: Present: mucous membranes moist - Neck Neck exam: Present: normal inspection - Respiratory Respiratory exam: Present: normal lung sounds bilaterally. Absent: respiratory distress - Cardiovascular Cardiovascular Exam: Present: normal rhythm, tachycardia - GI/Abdominal GI/Abdominal exam: Present: soft, tenderness (Mild epigastric), normal bowel sounds - Rectal Rectal exam: Present: deferred - Extremities Exam Extremities exam: Present: normal inspection - Back Exam Back exam: Present: normal inspection - Neurological Exam Neurological exam: Present: alert, oriented X3 - Psychiatric Psychiatric exam: Present: normal affect, normal mood - Skin Skin exam: Present: warm, dry, intact, normal color. Absent: rash ED Course Vital Signs 11/10/20 11/10/20 15:15 19:45 Temperature 97.9 F Pulse Rate 115 H 74 Respiratory 18 16 Rate Blood Pressure 206/113 Blood Pressure 160/100 [Left] O2 Sat by Pulse 99 99 Oximetry - Reevaluation(s) Reevaluation #1: 11/11/20 12:00 Patient treated with IV Toradol, IV NS, IV Zofran. Reevaluation #2: 11/11/20 12:00 On reevaluation, patient in no acute distress, abdomen soft nontender, denies abdominal pain. Patient tolerating p.o. food given to him by me at bedside. Discussed abnormal CT indicating possible early pancreatitis though without pain or tenderness and with normal lipase does not meet criteria for acute appendicitis. Advised to follow-up with GI in 1 to 2 days for which he was given information. ED Medical Decision Making - Lab Data Result diagrams: 11/10/20 15:54 11/10/20 15:54 Labs 11/10/20 11/10/20 11/10/20 15:54 15:54 18:51 WBC 7.3 RBC 5.49 H Hgb 16.2 H Hct 47.1 H MCV 86 MCH 30 MCHC 34 RDW 13.3 Plt Count 280 Lymph % (Auto) 10.0 L [place] % (Auto) 4.9 Eos % (Auto) 0.0 Baso % (Auto) 0.4 Lymph # (Auto) 0.7 L [place] # (Auto) 0.4 Eos # (Auto) 0.0 Baso # (Auto) 0.0 Seg Neutrophils % 84.7 H Seg Neutrophils # 6.2 Sodium 135 L Potassium 4.1 Chloride 91.2 L Carbon Dioxide 24 Anion Gap 24 BUN 15 Creatinine 1.0 Estimated GFR > 60 BUN/Creatinine Ratio 15 Glucose 341 H POC Glucose 263 H Calcium 9.6 Total Bilirubin 0.90 Direct Bilirubin 0.2 Indirect Bilirubin 0.7 AST 18 ALT 21 Alkaline Phosphatase 96 Troponin T < 0.010 Total Protein 7.7 Albumin 4.5 Albumin/Globulin Ratio 1.4 Lipase 57 Vital Signs 11/10/20 11/10/20 15:15 19:45 Temperature 97.9 F Pulse Rate 115 H 74 Respiratory 18 16 Rate Blood Pressure 206/113 Blood Pressure 160/100 [Left] O2 Sat by Pulse 99 99 Oximetry - Radiology Data Radiology results: report reviewed [facility] [address] [place] [address] Cat Scan Report Signed Patient: DAVID DAVIS MR#: [id number] : 1960 Acct:[id number] Age/Sex: 60 / M ADM Date: 11/10/20 Loc: ED Attending Dr: Ordering Physician: DOMENIC SYKES MD Date of Service: 11/10/20 Procedure(s): CT abdomen pelvis w con Accession Number(s): [id number] cc: DOMENIC SYKES MD CT ABDOMEN AND PELVIS WITH CONTRAST INDICATION / CLINICAL INFORMATION: epigastric pain. TECHNIQUE: Axial CT images were obtained through the abdomen and pelvis after IV contrast. All CT scans at this location are performed using CT dose reduction for ALARA by means of automated exposure control. COMPARISON: None available. FINDINGS: LOWER CHEST: Bibasilar volume loss is present. There is wall thickening of the distal esophagus. LIVER: No significant abnormality GALLBLADDER/BILIARY TREE: No significant abnormality PANCREAS: There is suggestion of peripancreatic inflammatory stranding about the pancreatic head. No significant free fluid or focal fluid collection. SPLEEN: No significant abnormality ADRENALS: No significant abnormality KIDNEYS / URETER: Bilateral perinephric stranding, likely related to senescent changes. There is no urolithiasis or hydronephrosis. URINARY BLADDER: No significant abnormality REPRODUCTIVE ORGANS: No significant abnormality STOMACH / SMALL BOWEL: Stomach and small bowel are normal in caliber. No evidence of bowel inflammation. COLON: The colon is unremarkable. The appendix is normal in caliber. LYMPH NODES: No significant adenopathy. VASCULATURE: Mild atherosclerotic calcification without acute abnormality. OTHER: No free air, free fluid, or focal fluid collection is identified. SKELETAL SYSTEM: No acute osseous findings. IMPRESSION: 1. Suggestion of inflammatory stranding about the pancreatic head, may reflect early interstitial pancreatitis. 2. Mural thickening of the distal esophagus, which may represent esophagitis. 3. Otherwise, no acute abnormality of the abdomen or pelvis. Signer Name: Fortunato Sen MD Signed: 11/10/2020 6:34 PM Workstation Name: [id number] Transcribed By: MIKI Dictated By: FORTUNATO SNE MD Electronically Authenticated By: FORTUNATO SEN MD Signed Date/Time: 11/10/201833 DD/ 28 TD/TT: Critical care attestation.: If time is entered above; I have spent that time in minutes in the direct care of this critically ill patient, excluding procedure time. ED Disposition Clinical Impression: Abdominal pain Disposition: DC-01 TO HOME OR SELFCARE Is pt being admited?: No Condition: Stable Instructions: Abdominal Pain, Adult, [id number] Additional Instructions: Follow-up with GI in 1 to 2 days for reevaluation by calling tomorrow for a follow-up appointment. Return to the emergency department for worsening symp toms. Referrals: [facility] [Provider Group] - 3-5 Days
[2020-11-10 17:07] LABS: Alanine Aminotransferase 21 units/L (7-56); Albumin 4.5 g/dL (3.9-5); BUN/Creatinine Ratio 15; Bilirubin,Direct 0.2 mg/dL (0-0.2); Blood Urea Nitrogen 15 mg/dL (9-20); Calcium 9.6 mg/dL (8.4-10.2); Hemolysis Index 4
[2020-11-10 17:35] LABS: Basophils % (Auto) 0.4 % (0.0-1.8); Hematocrit 47.1 % (35.5-45.6); Hemoglobin 16.2 gm/dl (11.8-15.2); Lymphocytes # (Auto) 0.7 K/mm3 (1.2-5.4); Mean Corpuscular HGB Conc 34 % (32-34); Mean Corpuscular Volume 86 fl (84-94); Monocytes # (Auto) 0.4 K/mm3 (0.0-0.8); Monocytes % (Auto) 4.9 % (0.0-7.3); Platelet Count 280 K/mm3 (140-440); Red Blood Count 5.49 M/mm3 (3.65-5.03); Red Cell Distribution Width 13.3 % (13.2-15.2)
[2020-11-10] MEDS ORDERED: KETOROLAC 30 MG/1 ML INJ IV ONE (17:52)
--- NOTE | 2020-11-10 18:38 | Cat Scan Report ---
CT ABDOMEN AND PELVIS WITH CONTRAST INDICATION / CLINICAL INFORMATION: epigastric pain. TECHNIQUE: Axial CT images were obtained through the abdomen and pelvis after IV contrast. All CT sc ans at this location are performed using CT dose reduction for ALARA by means of automated exposure c ontrol. COMPARISON: None available. FINDINGS: LOWER CHEST: Bibasilar volume loss is present. There is wall thickening of the distal esophagus. LIVER: No significant abnormality GALLBLADDER/BILIARY TREE: No significant abnormality PANCREAS: There is suggestion of peripancreatic inflammatory stranding about the pancreatic head. No significant free fluid or focal fluid collection. SPLEEN: No significant abnormality ADRENALS: No significant abnormality KIDNEYS / URETER: Bilateral perinephric stranding, likely related to senescent changes. There is no u rolithiasis or hydronephrosis. URINARY BLADDER: No significant abnormality REPRODUCTIVE ORGANS: No significant abnormality STOMACH / SMALL BOWEL: Stomach and small bowel are normal in caliber. No evidence of bowel inflammati on. COLON: The colon is unremarkable. The appendix is normal in caliber. LYMPH NODES: No significant adenopathy. VASCULATURE: Mild atherosclerotic calcification without acute abnormality. OTHER: No free air, free fluid, or focal fluid collection is identified. SKELETAL SYSTEM: No acute osseous findings. IMPRESSION: 1. Suggestion of inflammatory stranding about the pancreatic head, may reflect early interstitial gupta creatitis. 2. Mural thickening of the distal esophagus, which may represent esophagitis. 3. Otherwise, no acute abnormality of the abdomen or pelvis. Signer Name: Issa Sen MD Signed: 11/10/2020 6:34 PM Workstation Name: [id number]
[2020-11-10 19:47] VITALS: BP 160/100
== END 2020-11-10 20:18 | disposition home or self-care (01) ==
LOC: ED 15:14
DX: R10.13 Epigastric pain (principal); R11.2 Nausea with vomiting, unspecified; R19.7 Diarrhea, unspecified; I10 Essential (primary) hypertension; E11.9 Type 2 diabetes mellitus without complications; Z98.890 Other specified postprocedural states; Z79.899 Other long term (current) drug therapy
CPT/HCPCS: 36415; 74177; 80048; 80076; 82962; 83690; 84484; 85025; 96361; 96374; 96375; 99284; J1885; J2405; J7030; Q9967